=== PATIENT | female | born 2000 | race Two or more races ===

== ENCOUNTER 2019-12-28 18:13 | Emergency (ER) | payer OTHER ==
[~2019-12-28 18:13] MED LIST: Iopamidol-370 76% 500 ML 1 ML ONE
[2019-12-28 18:46] LABS: #Lymphocytes 1.7 thou/uL (1.20-3.40); #Monocytes 0.9 thou/uL (0.11-0.59); #Neutrophils 14.3 thou/uL (1.40-6.50); %Basophils 0.2 % (0.0-1.0); %Eosinophils 0.1 % (0.0-10.0); %Lymphocytes 9.9 % (21.0-51.0); %Monocytes 5.2 % (0.0-10.0); %Neutrophils 84.6 % (42.0-75.0); Mean Corpuscular Hemoglobin 33.1 pg (27.0-31.0); Mean Corpuscular Volume 97.2 fL (78.0-98.0); Mean Platelet Volume 9.5 fL (7.4-10.4); Platelet Count 186 thou/uL (130-400); RBC Distribution Width 12.4 % (11.5-14.5); Red Blood Cell (RBC) Count 4.23 mill/uL (4.20-5.40); White Blood Cell (WBC) Count 16.9 thou/uL (4.8-10.8)
[2019-12-28] MEDS ORDERED: Ondansetron PF 4 MG/2 ML Vial ONE (18:54)
[2019-12-28] MEDS ORDERED: Morphine 4 MG/ML VIAL ONE (18:54)
[2019-12-28 19:04] LABS: ALT (SGPT) 37 U/L (8-55); AST (SGOT) 84 U/L (5-34); Albumin 4.6 g/dL (3.5-5.0); Alkaline Phosphatase 69 U/L (40-110); Anion Gap 16 mmol/L (10-20); BUN (Urea Nitrogen) 12 mg/dL (7.0-18.7); Bilirubin, Total 0.8 mg/dL (0.2-1.2); Calc. Creatinine Clearance 0 mL/min (70-130); Calcium 9.5 mg/dL (7.8-10.44); Carbon Dioxide 23 mmol/L (22-29); Chloride 102 mmol/L (98-107); Estimated GFR-MDRD 88; Globulin 3.4 g/dL (2.4-3.5); Glucose 93 mg/dL (70-105); Lipase 66 U/L (8-78); Potassium 3.9 mmol/L (3.5-5.1); Sodium 137 mmol/L (136-145)
[2019-12-28 19:23] LABS: Bilirubin Negative (Negative); Blood, Urine Negative (Negative); Clarity Turbid (Clear); Glucose, Urine (Dipstick) Normal (Negative); Leukocyte 500 Leu/uL (Negative); Nitrite Negative (Negative); Protein, Urine (Dipstick) 50 mg/dL (Neg-Trace); Squamous Epithelial 21-50 HPF (0-3); Urobilinogen Normal mg/dL (Less than 2); WBC/HPF Greater than 50 HPF (0-3)
[2019-12-28 19:25] LABS: Pregnancy Test - Urine (BHCG) Negative (Negative); Pregu Control Background? CLEAR/WHITE (CLR/WHITE); Pregu Control Bar Appear? YES (CONTROL BAR); Specific Gravity 1.028 (1.002-1.036)
[2019-12-28 19:32] LABS: Bacteria/HPF 3+ HPF (None Seen)
[2019-12-28] MEDS ORDERED: cefTRIAXone\\ROCEPHIN 2 GM VIAL ONE (20:05)
--- NOTE | 2019-12-28 20:31 | CT ---
ABDOMEN CT WITH CONTRAST PELVIC CT WITH CONTRAST 12/28/19 HISTORY: One day of right lower quadrant pain. Pain is increasing and radiating to the umbilicus. COMPARISON: None. FINDINGS: ABDOMEN CT: Clear lung bases. Normal heart size. No pericardial effusion. The visualized aorta has a normal caliber. No periaortic fat stranding. No CT evidence of cholelithiasis or cholecystitis. Portal vein is patent. Liver, spleen, pancreas, and adrenal glands have appropriate attenuation and enhancement. Decreased visceral fat limits evaluation for inflammatory change. No mesenteric mass, lymphadenopathy , free air or free fluid. Symmetric enhancement of the kidneys. Bilaterally, no obstructive uropathy. Limited evaluation of the alimentary canal by the lack of oral contrast. No evidence of a bowel obstruction. Multiple normal c aliber small bowel loops. Normal ileocecal junction. There is fecal material in a nondistended, nondi lated colon. Diverticulosis, without evidence of diverticulitis. Suggestion of a normal caliber appen greg emanating from the cecal apex. There are no inflammatory changes secondary signs of appendicitis. PELVIC CT: Urinary bladder is decompressed. Intrauterine device is noted. Hypodensity in the right adnexa likely representing an ovarian follicle. No pelvic mass, lymphadenopathy, free air or free fluid. Presacral fat is preserved. 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 IMPRESSION: Questionable appendix in the right lower quadrant which appears to be truncated. No secondary signs o f inflammatory change to suggest appendicitis. POS: PPP
== END 2019-12-28 21:11 | disposition home or self-care (01) ==
LOC: ERS 18:13
DX: N30.00 Acute cystitis without hematuria (principal)
CPT/HCPCS: 74177; 80053; 81003; 81015; 81025; 83690; 85025; 96365; 96375; J0696; J2270; J2405; Q9967